=== PATIENT | male | born 1955 | race Caucasian/White ===

== ENCOUNTER 2020-03-26 09:00 | Outpatient (RCR) | payer MEDICARE, BC, SELFPAY ==
--- NOTE | 2020-02-19 10:32 | HP.OTEVAL ---
Patient's Visit Information MONSE NOVA is a 64 year old M, referred to Occupational Therapy by MARKO BROWNE, with a diagnosis of right distal radius fx malunion. Date of Evaluation: 02/14/20 Occupational Therapist: Anu Philippe, OTR/Jerel, CHT - Subjective This 64 year old male was seen for OT eval with dx of a right distal radius fx with malunion. pt states he had a fall January 03 2020 and he slipped. pt did go to ER. pt currently 6 weeks out from injury. Pt states it was about 4 weeks from when he injured his wrist and before he was able to see hand specialist. Once evaluated and pt agree to let it heal on its own at this time. 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 - Pain right wrist 4 Pain Intensity Range: 0, 6 - ROM Forearm: right/left WNL Wrist: right 30/25 left 60/45 ROM Comments: pt demo good digit ROM - Strength Product Marketing Specialist: right 10# left 12# Lateral Pinch: right 10# left 2# with compensitory pinch Tripod Pinch: right 6# left unable Tip-to-Tip Pinch: right 6# left unable - Quick DASH-Disab of Arm,Shoulder& Hand Quick DASH Score: 61.3625 - Goals Goal:: PT will demo an increase in tablet machine operator strength by 20# to increase independent with basic occupations of daily living to return pt to PLOF by D/C. Pt will demo an increase in lateral and tripod pinch by 2# to increase pts independent with opening baggies, containers at PLOF by D/C. Goal:: pt will demo a increase in wrist ROM by 15* or greater to increase pts functional ADls and IADls with bathing/dressing tasks by d/c Goal:: Pt will demo understanding of adaptive Equipment use to decrease stress on joints to allow pt to perform BADSL and IADLS at [place] level. - Rehabilitation General Assessment: pt currently 6 weeks from injury DOI 01/03/2020. pt demo with pain, limited ROM and strength increasing need of assist with ADLs and IADLs. pt would benefit from skilled OT services 2x week for 6 weeks to return pt to PLOF. Today therapist ed. pt on AAROM, AROM and will progress pt to strengthening as he noah during the course of his therapy. Pt and demo understanding and agree to POC. Rehabilitation Potential: Good - Anticipated Interventions A/AAROM/PROM, Strengthening, Triggerpoint Release, Modalities, Orthoses, Joint Protection/Energy Conservation - Visit Plan Frequency: 2x /Week TEXT: Thank you for the opportunity to evaluate your patient. For Medicare and Medicare HMO plans, please review the plan of care and approve it. It will need to be FAXED BACK to us at [phone] for Medicare purposes. Please let me know if there are questions or concerns regarding this plan of care. Physician Signature: Date:
--- NOTE | 2020-03-05 11:58 | OTREVAL_ITS ---
MARKO BROWNE, It has been my pleasure to treat MONSE NOVA over the last 7 visits for right distal radius fx malunion. Please see the progress note below for an update on the occupational therapy plan of care! Subjective: pt sates he is doing well- no pain pt is 8 weeks 6 days Objective/Function: right wrist ROM 60/30. right radiology director strength increased from 10# to 15#. pt states he can now cut his own food, dishes and [place] with ADLS. pt has made gains with ROM and strength but would cont. with OT 2x week for 3 more to increase strength for ADLs and IADLs Plan Frequency: 2x /Week Duration: 3 Weeks Plan: rec'd pt to cont with OT 2x week for 3 weeks to cont. to increase pts functional strength Goals - Goals Patient Goals: Regain Mobility, Regain Strength, Use Hand/Wrist/Arm Normally Again Goal:: PT will demo an increase in radiology director strength by 20# to increase independent with basic occupations of daily living to return pt to PLOF by D/C. Pt will demo an increase in lateral and tripod pinch by 2# to increase pts independent with opening baggies, containers at PLOF by D/C. Goal:: pt will demo a increase in wrist ROM by 15* or greater to increase pts functional ADls and IADls with bathing/dressing tasks by d/c Goal:: Pt will demo understanding of adaptive Equipment use to decrease stress o n joints to allow pt to perform BADSL and IADLS at [place] level. Anticipated Interventions Anticipated Interventions: A/AAROM/PROM, Strengthening, Triggerpoint Release, Modalities, Orthoses, Joint Protection/Energy Conservation Please do not hesitate to contact me at [phone] by phone or if you have questions or concerns regarding this new plan of care! Sincerely, Anu Philippe, OTR/L, CHT
--- NOTE | 2020-03-26 09:16 | HP.OTDCSUM ---
It has been my pleasure to treat MONSE NOVA under orders from MARKO BROWNE, for the diagnosis of right distal radius fx malunion for a total of 13 visit(s). Please see the following information for a summary of their discharge status. % Improvement: 90 Objective/Function: right wrist 65/35. right forearm sup/pronation WNL. right senior policy associate strength 25# a increase from 10#. right lateral pinch 10#. right tripod pinch 10# a increase from 6# and right tip pinch strength 8# a increase from 6#. pt has made gains in therapy and will cont to use right UE as IND. with ADLs and IADLs. Patient Goals: Regain Mobility, Regain Strength, Use Hand/Wrist/Arm Normally Again Goal:: PT will demo an increase in senior policy associate strength by 20# to increase independent with basic occupations of daily living to return pt to PLOF by D/C. Pt will demo an increase in lateral and tripod pinch by 2# to increase pts independent with opening baggies, containers at PLOF by D/C. Goal:: pt will demo a increase in wrist ROM by 15* or greater to increase pts functional ADls and IADls with bathing/dressing tasks by d/c Goal:: Pt will demo understanding of adaptive Equipment use to decrease stress on joints to allow pt to perform BADSL and IADLS at [place] level. Plan: D/C Discharge Comments: Pt was seen for 13 visits for OT following a right wrist fx. pt reportes he is ind. with ADLs and IADLs at this time. pt will cont with HEP of senior policy associate/pinch strength to continue to improve his strength. If there are questions or concerns regarding this patient's occupational therapy, please fell free to call me at [phone]. Thank you for the referral of this patient. Sincerely, Anu Philippe, OTR/L, CHT
== END 2020-03-26 19:00 | disposition home or self-care (01) ==
LOC: OT 09:00
PROVIDERS: PCP Family Medicine
DX: S52.501P Unspecified fracture of the lower end of right radius, subsequent encounter for closed fracture with malunion (principal)
CPT/HCPCS: 97110; 97166; 97530